=== PATIENT | male | born 1995 | race Caucasian/White ===

== ENCOUNTER → 2016-10-26 | Outpatient (CLI) | payer OTHER | LOC: LAB 14:20 | DX: F29 Unspecified psychosis not due to a substance or known physiological condition (principal) | CPT/HCPCS: 36415; 80178; G0480 ==

== ENCOUNTER → 2022-03-12 | Outpatient (CLI) | payer OTHER ==
[~2022-03-12] MED LIST: BENTYL 10MG CAP10 MG PO; OMNICEF 300 MG300 MG PO; ZOFRAN4 MG PO
== END ==
LOC: KOH-I 11:21
DX: S89.90XA Unspecified injury of unspecified lower leg, initial encounter (principal)
CPT/HCPCS: 73552